=== PATIENT | male | born 1935 | race Caucasian/White ===

== ENCOUNTER → 2017-11-10 | Outpatient (REF) | payer MEDICARE ==
[2017-11-11 11:02] LABS: ALT/SGPT 22 U/L (12-78); AST/SGOT 18 U/L (7-37); CHOLESTEROL LEVEL 89 MG/DL (<200); CHOLESTEROL RISK RATIO 1.893 (<5); CPK CREATINE PHOSPHOKINASE 80 U/L (39-308); HDL CHOLESTEROL 47 MG/DL (>40); NON-HDL-C 42 MG/DL; TRIGLYCERIDES LEVEL 85 MG/DL (<150)
== END ==
LOC: M LAB REF 09:29
DX: E78.2 Mixed hyperlipidemia (principal); I25.10 Atherosclerotic heart disease of native coronary artery without angina pectoris; I10 Essential (primary) hypertension
CPT/HCPCS: 84460

== ENCOUNTER → 2018-02-10 | Outpatient (REF) | payer MEDICARE ==
[2018-02-10 17:07] LABS: ALT/SGPT 23 U/L (12-78); AST/SGOT 13 U/L (7-37); CHOLESTEROL LEVEL 95 MG/DL (<200); CHOLESTEROL RISK RATIO 2.159 (<5); CPK CREATINE PHOSPHOKINASE 71 U/L (39-308); HDL CHOLESTEROL 44 MG/DL (>40); NON-HDL-C 51 MG/DL; TRIGLYCERIDES LEVEL 75 MG/DL (<150)
== END ==
LOC: M LABDRAWC 16:15
DX: E78.2 Mixed hyperlipidemia (principal)
CPT/HCPCS: 84460

== ENCOUNTER → 2018-02-10 | Outpatient (REF) | payer MEDICARE | LOC: M SFHCCAPE 14:09 | DX: L03.012 Cellulitis of left finger (principal) | CPT/HCPCS: 87186 ==

== ENCOUNTER → 2018-05-23 | Outpatient (REF) | payer MEDICARE ==
[2018-05-23 17:29] LABS: BASO % 0.4 % (0.0-1.0); EOS # 0.2 10^3/uL (0.0-0.50); EOS % 2.6 % (0.0-3.0); HEMATOCRIT 40.6 % (42.0-52.0); HEMOGLOBIN 13.4 g/dl (13.5-17.5); LYMPH % 27.3 % (24.0-44.0); MEAN CORPUSCULAR HEMOGLOBIN 33.2 pg (27.0-33.0); MEAN CORPUSCULAR VOLUME 100.5 fl (80.0-96.0); MONO # 0.6 10^3/uL (0.0-0.8); MONO % 7.7 % (0.0-5.0); NEUTROPHILS # 4.6 10^3/uL (1.8-7.7); NEUTROPHILS % 61.7 % (36.0-66.0); PLATELET COUNT, AUTOMATED 179 10^3/uL (150-450); RED BLOOD COUNT 4.04 10^6/uL (4.30-6.10); WHITE BLOOD COUNT 7.4 10^3/uL (4.0-10.0)
[2018-05-23 17:47] LABS: ALBUMIN 3.6 GM/DL (3.2-5.2); ALT/SGPT 22 U/L (12-78); BILIRUBIN,TOTAL 0.5 MG/DL (0.2-1.0); BLOOD UREA NITROGEN 22 MG/DL (7-18); CALCIUM LEVEL 8.9 MG/DL (8.8-10.2); CARBON DIOXIDE LEVEL 29 MEQ/L (21-32); CHLORIDE LEVEL 103 MEQ/L (98-107); CREATININE FOR GFR 1.05 MG/DL (0.70-1.30); GLOMERULAR FILTRATION RATE > 60.0 (>35); GLUCOSE, FASTING 91 MG/DL (70-100); POTASSIUM SERUM 4.2 MEQ/L (3.5-5.1); SODIUM LEVEL 140 MEQ/L (136-145)
== END ==
LOC: M SFHCCAPE 08:28
PROVIDERS: ATTEND Physician Assistant
DX: I10 Essential (primary) hypertension (principal)

== ENCOUNTER → 2018-11-08 | Outpatient (REF) | payer MEDICARE ==
[2018-11-08 18:11] LABS: ALBUMIN 3.1 GM/DL (3.2-5.2); ALT/SGPT 42 U/L (12-78); BILIRUBIN,TOTAL 0.5 MG/DL (0.2-1.0); BLOOD UREA NITROGEN 28 MG/DL (7-18); CALCIUM LEVEL 9.5 MG/DL (8.8-10.2); CARBON DIOXIDE LEVEL 29 MEQ/L (21-32); CHLORIDE LEVEL 102 MEQ/L (98-107); CHOLESTEROL LEVEL 99 MG/DL (<200); CREATININE FOR GFR 1.22 MG/DL (0.70-1.30); FERRITIN 1313 NG/ML (26-388); FREE T4 1.15 NG/DL (0.76-1.46); GLOMERULAR FILTRATION RATE > 60.0 (>35); GLUCOSE, FASTING 89 MG/DL (70-100); HDL CHOLESTEROL 50 MG/DL (>40); IRON (FE) 70 UG/DL (65-175); LDL CHOLESTEROL 33 MG/DL (<100); NON-HDL-C 49 MG/DL; POTASSIUM SERUM 4.6 MEQ/L (3.5-5.1); SODIUM LEVEL 139 MEQ/L (136-145); THYROID STIMULATING HORMONE 0.936 uIU/ML (0.358-3.740); TOTAL IRON BINDING CAPACITY 206 UG/DL (250-450); TOTAL PROTEIN 6.4 GM/DL (6.4-8.2); TRIGLYCERIDES LEVEL 81 MG/DL (<150)
[2018-11-08 18:27] LABS: BASO % 0.4 % (0.0-1.0); EOS # 0.1 10^3/uL (0.0-0.50); EOS % 1.3 % (0.0-3.0); HEMOGLOBIN 12.9 g/dl (13.5-17.5); LYMPH # 1.4 10^3/uL (1.5-4.5); MEAN CORPUSCULAR HGB CONC 32.3 g/dl (32.0-36.5); MEAN CORPUSCULAR VOLUME 102.3 fl (80.0-96.0); MONO # 0.7 10^3/uL (0.0-0.8); MONO % 9.5 % (0.0-5.0); NEUTROPHILS # 4.7 10^3/uL (1.8-7.7); NEUTROPHILS % 68.4 % (36.0-66.0); PLATELET COUNT, AUTOMATED 276 10^3/uL (150-450); RED BLOOD COUNT 3.91 10^6/uL (4.30-6.10); WHITE BLOOD COUNT 6.8 10^3/uL (4.0-10.0)
[2018-11-08 19:53] LABS: HEMOGLOBIN A1c 5.3 %
[2018-11-09 15:48] LABS: GAMMA GLUTAMYLTRANSPEPTIDASE 219 U/L (15-85)
[2018-11-09 16:01] LABS: TOTAL 25(OH) VITAMIN D 26.1 NG/ML (30.0-100.0)
[2018-11-09 16:02] LABS: VITAMIN B12 LEVEL 494 PG/ML (247-911)
[2018-11-09 16:13] LABS: HEPATITIS B SURFACE ANTIGEN NEGATIVE (NEGATIVE)
[2018-11-09 16:40] LABS: HEPATITIS B CORE ANTIBODY IGM NEGATIVE (NEGATIVE); HEPATITIS C VIRUS ABY INDEX 0.1 INDEX (<0.8)
[2018-11-09 16:43] LABS: HEPATITIS A ANTIBODY IGM NEGATIVE (NEGATIVE)
== END ==
LOC: M SFHCCAPE 11:31
PROVIDERS: ATTEND Physician Assistant
DX: R53.83 Other fatigue (principal); I10 Essential (primary) hypertension
CPT/HCPCS: 36415; 80053; 80061; 82306; 82607; 82728; 82977; 83036; 83550; 84439; 84443; 85025; 86705; 86709; 86803; 87340; 93005; G0463